=== PATIENT | male | born 1965 | race Caucasian/White ===

== ENCOUNTER 2021-05-28 15:20 | Emergency (ER) | payer SELFPAY ==
[2021-05-28 15:51] VITALS: BP 143/92; PULSE 69
[2021-05-28] MEDS ORDERED: Bacitracin Oint 1 GM U/D Packet TOP ONE (15:53)
--- NOTE | 2021-05-28 16:10 | EDM.PDOC ---
<Antonieta Laughlin - Last Filed: 05/28/21 16:47> ED HPI GENERAL MEDICAL PROBLEM - General Chief Complaint: Laceration Stated Complaint: CUT RING FINGER ON L HAND Time Seen by Provider: 05/28/21 15:50 Source of Information: Reports: Patient History Limitations: Reports: No Limitations - History of Present Illness INITIAL COMMENTS - FREE TEXT/NARRATIVE: 56 year old male arrives with complaints of finger laceration today. He reports that he was cutting wood with a saw when "it caught his finger". He states that it was bleeding quite a bit at home and thought he should get it checked out. Denies other injuries, TDAP in 2013. Bleeding controlled at time of arrival. Onset: Today Onset Date: 05/28/21 Duration: Hour(s): Location: Reports: Other (left 4th finger laceration from saw) Quality: Reports: Throbbing Severity: Mild Improves with: Reports: None Worsens with: Reports: None Context: Reports: Other (was choping wood) Associated Symptoms: Reports: No Other Symptoms - Related Data Allergies Allergy/AdvReac Type Severity Reaction Status Date / Time No Known Allergies Allergy Verified 05/28/21 16:02 Home Meds: Home Meds Gemfibrozil 600 mg PO BIDAC 08/07/13 [History] Ibuprofen [Advil] 400 mg PO TID 08/07/13 [History] Metoprolol Succinate [Toprol XL] 25 mg PO DAILY 08/07/13 [History] Multivitamin [Multivitamins] 1 each PO DAILY 08/07/13 [History] Simvastatin [Zocor] 80 mg PO BEDTIME 08/07/13 [History] glipiZIDE [Glucotrol XL] 10 mg PO BID 08/07/13 [History] lisinopriL [Prinivil] 40 mg PO DAILY 08/07/13 [History] metFORMIN HCl [Metformin HCl] 1,000 mg PO BID 08/07/13 [History] Gabapentin [Neurontin] 300 mg PO BID 08/11/14 [History] Insulin NPH Hum/Reg Insulin Hm [Novolin 70-30 Flexpen] 35 units SQ DAILY 05/28/21 [History] Past Medical History Cardiovascular History: Reports: High Cholesterol, Hypertension ED ROS GENERAL - Review of Systems Review Of Systems: See Below Constitutional: Reports: No Symptoms. Denies: Fever, Chills, Weakness HEENT: Reports: No Symptoms Respiratory: Reports: No Symptoms. Denies: Shortness of Breath, Wheezing Cardiovascular: Reports: No Symptoms. Denies: Chest Pain, Dyspnea on Exertion, Edema, Lightheadedness Endocrine: Reports: No Symptoms GI/Abdominal: Reports: No Symptoms. Denies: Abdominal Pain, Nausea, Vomiting : Reports: No Symptoms Musculoskeletal: Reports: No Symptoms. Denies: Neck Pain Skin: Reports: Wound (left 4th finger laceration 2 cm in length) Neurological: Reports: No Symptoms. Denies: Confusion, Dizziness, Headache, Numbness, Paresthesia Psychiatric: Reports: No Symptoms Hematologic/Lymphatic: Reports: No Symptoms Immunologic: Reports: No Symptoms ED EXAM, SKIN/RASH Exam: See Below Text/Narrative:: Charlene is a well appearing 56 year old male who is resting on the cart, alert and oriented. He does not appear to be in distress. Laceration to left 4th finger is about 2 cm in length and has some jagged edges from the saw blade. Bleeding is controlled, no tendon involvement noted. CMS+. Respirations regular and non labored. skin warm and dry. Exam Limited By: No Limitations General Appearance: Alert, WD/WN, No Apparent Distress Ears: Normal External Exam Nose: Normal Inspection, No Blood Throat/Mouth: Normal Inspection Head: Atraumatic Neck: Normal Inspection, Non-Tender Respiratory/Chest: No Respiratory Distress, Lungs Clear, Normal Breath Sounds Cardiovascular: Normal Peripheral Pulses, No Edema GI/Abdominal: Soft, Non-Tender, No Distention (Male) Exam: Deferred Rectal (Males) Exam: Deferred Back Exam: Normal Inspection, Full Range of Motion Extremities: Normal Inspection, Normal Range of Motion Neurological: Alert, Oriented, Normal Cognition, Normal Gait Psychiatric: Normal Affect Skin: Warm, Dry, Wound/Incision (left 4th finger laceration from saw blade while cutting wood today) Lymphatic: No Adenopathy ED SKIN PROCEDURES - Laceration/Wound Repair Left Upper Anterior Digit - 4th (Ring) Appearance: Subcutaneous Distal NVT: Neuro & Vascular Intact, No Tendon Injury Anesthetic Type: Local Local Anesthesia - Lidocaine (Xylocaine): 1% Plain Local Anesthetic Volume: 3cc Skin Prep: Saline Exploration/Debridement/Repair: Wound Explored, No Foreign Material Found Closed with: Sutures Lac/Wound length In cm: 2 Suture Size: 4-0 # of Sutures: 5 Suture Type: Prolene Sterile Dressing Applied: Nurse Tetanus Status Addressed: Yes Complications: No Departure - Departure Disposition: Home, Self-Care 01 Clinical Impression: Broken skin - Discharge Information Instructions: Laceration Care, Adult, [id number] Referrals: PCP,None [Primary Care Provider] - Forms: ED Department Discharge Additional Instructions: 5 stitched to the laceration on your left 4th finger. Please keep wound clean, can cleanse with soap and water. Ok to take showers and get wet but do not soak wound. Watch for infection signs such as increased redness, increased pain, drainage, or fever. Have sutures removed Sunday06/06/21. <Yogesh Caal - Last Filed: 05/28/21 17:44> Course - Vital Signs Last Recorded V/S: Last Vital Signs Temp 97.8 F 05/28/21 16:09 Pulse 69 05/28/21 16:09 Resp 18 05/28/21 16:09 BP 143/92 H 05/28/21 16:09 Pulse Ox 97 05/28/21 16:09 - Orders/Labs/Meds Meds: Medications Discontinued Medications Generic Name Dose Route Start Last Admin Trade Name Freq PRN Reason Stop Dose Admin Bacitracin 1 dose 05/28/21 15:53 05/28/21 16:12 Bacitracin Oint 1 Gm U/D Packet TOP 05/28/21 15:54 1 dose ONETIME ONE Administration Lidocaine HCl 5 ml 05/28/21 15:53 05/28/21 16:12 Lidocaine 1% 5 Ml Sdv INJECT 05/28/21 15:54 5 ml ONETIME ONE Administration Departure - Departure Time of Disposition: 17:08 Sepsis Event Note (ED) - Focused Exam Vital Signs: Vital Signs Temp Pulse Resp BP Pulse Ox 05/28/21 16:09 97.8 F 69 18 143/92 H 97 05/28/21 15:49 97.8 F 69 18 143/92 H 97 Attestation - Student - Attestation Statement Attestation Statement: I personally performed or re-performed the physical examination and medical decision making. I have verified all student documentation or findings, including history, physical exam and/or medical decision making.
--- NOTE | 2021-05-28 16:44 | EDM.PDOC ---
ED HPI GENERAL MEDICAL PROBLEM - General Chief Complaint: Laceration Stated Complaint: CUT RING FINGER ON L HAND Time Seen by Provider: 05/28/21 15:50 Source of Information: Reports: Patient History Limitations: Reports: No Limitations - History of Present Illness INITIAL COMMENTS - FREE TEXT/NARRATIVE: 56 year old male arrives with complaints of finger laceration today. He reports that he was cutting wood with a saw when "it caught his finger". He states that it was bleeding quite a bit at home and thought he should get it checked out. Denies other injuries, TDAP in 2013. Bleeding controlled at time of arrival. Onset: Today Onset Date: 05/28/21 Duration: Hour(s): Location: Reports: Other (left 4th finger laceration from saw) Quality: Reports: Throbbing Severity: Mild Improves with: Reports: None Worsens with: Reports: None Context: Reports: Other (was choping wood) Associated Symptoms: Reports: No Other Symptoms - Related Data Allergies Allergy/AdvReac Type Severity Reaction Status Date / Time No Known Allergies Allergy Verified 05/28/21 16:02 Home Meds: Home Meds Gemfibrozil 600 mg PO BIDAC 08/07/13 [History] Ibuprofen [Advil] 400 mg PO TID 08/07/13 [History] Metoprolol Succinate [Toprol XL] 25 mg PO DAILY 08/07/13 [History] Multivitamin [Multivitamins] 1 each PO DAILY 08/07/13 [History] Simvastatin [Zocor] 80 mg PO BEDTIME 08/07/13 [History] glipiZIDE [Glucotrol XL] 10 mg PO BID 08/07/13 [History] lisinopriL [Prinivil] 40 mg PO DAILY 08/07/13 [History] metFORMIN HCl [Metformin HCl] 1,000 mg PO BID 08/07/13 [History] Gabapentin [Neurontin] 300 mg PO BID 08/11/14 [History] Insulin NPH Hum/Reg Insulin Hm [Novolin 70-30 Flexpen] 35 units SQ DAILY 05/28/21 [History] Past Medical History Cardiovascular History: Reports: High Cholesterol, Hypertension Course - Vital Signs Text/Narrative:: 5 sutures to left 4th finger lac placed. TDAP up to date. bacitracin and compression dressing to be applied. Wound care discussed with patient. Last Recorded V/S: Last Vital Signs Temp 36.6 C 05/28/21 16:09 Pulse 69 05/28/21 16:09 Resp 18 05/28/21 16:09 BP 143/92 H 05/28/21 16:09 Pulse Ox 97 05/28/21 16:09 - Orders/Labs/Meds Meds: Medications Discontinued Medications Generic Name Dose Route Start Last Admin Trade Name Tamera PRN Reason Stop Dose Admin Bacitracin 1 dose 05/28/21 15:53 05/28/21 16:12 Bacitracin Oint 1 Gm U/D Packet TOP 05/28/21 15:54 1 dose ONETIME ONE Administration Lidocaine HCl 5 ml 05/28/21 15:53 05/28/21 16:12 Lidocaine 1% 5 Ml Sdv INJECT 05/28/21 15:54 5 ml ONETIME ONE Administration Departure - Departure Disposition: Home, Self-Care 01 Condition: Good Clinical Impression: Broken skin - Discharge Information Instructions: Laceration Care, Adult, [id number] Referrals: PCP,None [Primary Care Provider] - Forms: ED Department Discharge Additional Instructions: 5 stitched to the laceration on your left 4th finger. Please keep wound clean, can cleanse with soap and water. Ok to take showers and get wet but do not soak wound. Watch for infection signs such as increased redness, increased pain, drainage, or fever. Have sutures removed Sunday06/06/21. Sepsis Event Note (ED) - Evaluation Sepsis Screening Result: No Definite Risk - Focused Exam Vital Signs: Vital Signs Temp Pulse Resp BP Pulse Ox 05/28/21 16:09 36.6 C 69 18 143/92 H 97 05/28/21 15:49 36.6 C 69 18 143/92 H 97
== END 2021-05-28 17:09 | disposition home or self-care (01) ==
LOC: JP.ED 15:20
DX: S61.215A Laceration without foreign body of left ring finger without damage to nail, initial encounter (principal); E78.00 Pure hypercholesterolemia, unspecified; I10 Essential (primary) hypertension; Z79.899 Other long term (current) drug therapy; W26.8XXA Contact with other sharp object(s), not elsewhere classified, initial encounter; Y92.009 Unspecified place in unspecified non-institutional (private) residence as the place of occurrence of the external cause
CPT/HCPCS: 12001; 99282-25